=== PATIENT | male | born 1945 | race Caucasian/White ===

== ENCOUNTER 2016-10-08 18:57 | Inpatient (IN) | payer MEDICARE, OTHER ==
[~2016-10-08] VITALS: Ht 172.7 cm; Wt 57.0 kg
[~2016-10-08 18:57] MED LIST: ASPIRIN325 MG PO; B-121000 MC1 PO; BACLOFEN10 MG PO; CARTIA XT180 MG/24 PO; CEFPODOXIME PR200 MG PO; GABAPENTIN300 MG PO; LAXATIVE5 MG PO; MELATONIN3 M1 PO; MULTI VIT PO; SERTRALINE HCL50 MG PO; SYMBICORT 80-4.5MCG IN; TIZANIDINE HCL4 M1 PO; VICODIN ES1 TA1 PO
--- NOTE | 2016-10-08 18:57 | NUR ---
PT. IMMEDIATELY TO TREATMENT ROOM #9 ON ARRIVAL TO ED.
--- NOTE | 2016-10-08 19:21 | NUR ---
SPOUSE AT BEDSIDE AT THIS TIME.
--- NOTE | 2016-10-08 20:24 | NUR ---
PT SLEEPING SOUNDLY AT THIS TIME. APPEARS TO BE MOUTH BREATHER, HAS DECIDED TO GO HOME. FLUIDS AND ANTIBIOTIC INFUSING PER PROTOCOL. VITAL SIGNS STABLE.
[2016-10-08 20:34] LABS: HEMATOCRIT 32.4 % (39.0-50.0); HEMOGLOBIN 11.4 g/dl (14.0-18.0); IMMATURE GRANULOCYTES 0.5 % (0.0-1.0); MEAN CELL VOLUME 98.5 fL CALC (80.0-100.0); MEAN CORPUSCULAR HGB 34.7 pG CALC (26.0-32.0); MEAN CORPUSCULAR HGB CONC 35.2 g/L CALC (32.0-36.0); NEUT# 13.01 thou/uL (1.82-7.42); RED BLOOD COUNT 3.29 mill/uL (4.70-6.10); RED CELL DISTRI WIDTH 14.8 % (11.5-15.5)
[2016-10-08] MEDS ORDERED: MEGACE40 MG PO (20:39)
[2016-10-08] MEDS ORDERED: MIRTAZAPINE15 MG PO (20:39)
[2016-10-08] MEDS ORDERED: FLUOXETINE20 MG PO (20:39)
[2016-10-08] MEDS ORDERED: BUPROPION150 M3 PO (20:40)
[2016-10-08] MEDS ORDERED: HYDROXYCHLOR200 M1 PO (20:40)
[2016-10-08] MEDS ORDERED: PERCOCET 10/31 COMBO PO (20:41)
[2016-10-08] MEDS ORDERED: VITAMIN B-3 PO (20:42)
[2016-10-08] MEDS ORDERED: CALCIUM600 M1 PO (20:42)
[2016-10-08] MEDS ORDERED: FISH OIL1200 M1 PO (20:42)
[2016-10-08] MEDS ORDERED: PROSTATE HEALTH PO (20:43)
[2016-10-08] MEDS ORDERED: ALEVE220 MG PO (20:43)
[2016-10-08 20:44] LABS: ACT PARTIAL THROMBO TIME 26.4 SECONDS (20.0-32.5); INTERNATIONAL NORMALIZED RATIO 0.9 RATIO (0.7-1.3); PROTHROMBIN TIME 10.1 SECONDS (9.0-12.5)
[2016-10-08 20:45] LABS: ALBUMIN 3.8 g/dL (3.2-5.0); ALKALINE PHOSPHATASE 63 u/l (38-126); ANION GAP 14 (6-22 (CALC)); BILIRUBIN, TOTAL 0.5 mg/dL (0.0-1.4); BUN 13 mg/dL (8-23); BUN/CREATININE RATIO 21 (12-20 (CALC)); CALCIUM 9.4 mg/dL (8.4-10.2); CARBON DIOXIDE 26 mmol/l (22-30); CHLORIDE 98 mmol/l (95-108); CREATININE 0.6 mg/dL (0.7-1.3); GFR > 60 ML/MIN (>=60 (CALC)); GFR FOR AFR.AMER. > 60 ML/MIN (>=60 (CALC)); GLUCOSE 88 mg/dL (82-115); POTASSIUM 4.1 mmol/l (3.5-5.1); SGOT/AST 39 u/l (19-48); SGPT/ALT 29 u/l (11-66); SODIUM 134 mmol/l (137-146)
[2016-10-08 20:55] LABS: MYOGLOBIN 110 ng/mL (0 - 121)
--- NOTE | 2016-10-08 21:12 | NUR ---
PT REMAINS SLEEPING SOUNDLY, VITAL SIGNS STABLE, IV FLUIDS INFUSING.
--- NOTE | 2016-10-08 21:33 | NUR ---
FLUIDS STILL INFUSING, BLOOD PRESSURE HAS INCREASED TO 98/60, IV SITE REMAINS HEALTHY.
[2016-10-08 22:30] LABS: URINE BILIRUBIN - DIPSTICK NEGATIVE (NEGATIVE); URINE BLOOD DIPSTICK NEGATIVE (NEGATIVE); URINE CLARITY CLEAR; URINE COLOR YELLOW; URINE GLUCOSE - DIPSTICK NEGATIVE (NEGATIVE); URINE KETONE TRACE mg/dL (NEGATIVE); URINE LEUK ESTERASE NEGATIVE (NEGATIVE); URINE NITRITE - DIPSTICK NEGATIVE (Negative); URINE PH 5.5 (4.5-8.0); URINE PROTEIN - DIPSTICK TRACE mg/dL (NEG-TRACE); URINE SPECIFIC GRAVITY >=1.030; URINE UROBILINOGEN - DIPSTICK 0.2 E.U./dL (0.2)
--- NOTE | 2016-10-08 23:23 | NUR ---
MEDICATED FOR COMPLAINT OF BACK PAIN. PTIENT IS CONMVERSING MORE READILY, EG ASKING WHAT IV MED WAS BEING GIVEN.
[2016-10-09] VITALS (7 sets, daily range): BP systolic 129–172; BP diastolic 72–95
--- NOTE | 2016-10-09 01:05 | NUR ---
1ST LITER OF NORMAL SLAINE INFUSED, 2ND STARTED AT 500 CC/HR FOR A TOTAL OF 800 CC. PATIENT DIEFINITY MORE ALERT AND COGNIZANT - CALLING THE IV PUMP "A PAIN IN THE ASS!"
--- NOTE | 2016-10-09 01:51 | NUR ---
SBAR PRINTED TO FLOOR
--- NOTE | 2016-10-09 02:38 | NUR ---
Admission Note Report Given to: QUIN PRINTED TO FLOOR, SEN Transported by: Wheelchair X Stretcher Transported with: X Nurse Transporter X Patent IV O2 X Immigration Case Worker
--- NOTE | 2016-10-09 02:46 | NUR ---
REPORT WAS GIVEN TO SEN ON MED SURG AND PATIENT TAKEN UPSTAIRS ON THE RNEY BY SHIRAZ LEE.
--- NOTE | 2016-10-09 03:00 | NUR ---
PATIENT ADMITTED FROM ER VIA STRETCHER WITH ER STAFF IN ATTENDANCE. PATIENT IS MAX ASSISTED TO STAND AND TRANSFER TO THE BED. PATIENT IS AWAKE ALERT AND ORIENTEDX3. PATIENT WITH O2 VIA NASAL CANNULA VIA NASAL CANNULA AT 2LPM. PATIENT WITH HISTORY OF COPD AND HAS O2 AT HOME. PATIENT ADMITTED FOR WEAKNESS, FALL AND SYNCOPE. PATIENT WITH HISTORY OF CHRONIC BACK PAIN. PATIENT WITH IV SITE TO LEFT AC WITH NS PATENT AND INFUSING AT 125CC/HR. SITE APPEARS HEALTHY AT THIS TIME. PATIENT IS VOIDING TEA COLORED URINE IN THE URINAL. PATIENT IS VERY UNSTEADY ON HIS FEET. SAFETY PRECAUTIONS REVIEWED WITH PATIENT. PATIENT ORIENTED TO ROOM AND SURROUNDINGS.. INSTRUCTED ON USE OF NURSE CALL LIGHT SYSTEM AND TV REMOTE. CALL LIGHT IN REACH. WILL CONT TO MONITOR.
--- NOTE | 2016-10-09 04:16 | NUR ---
RECIEVED CALL FROM BEKA LEE IN THE ER-STATES THAT PATIENT JUST HAD 6 BEAT RUN OF V-TACH. PATIENT RESTING IN BED WITH O2 VIA NASAL CANNULA IN PLACE. PATIENT IS ALERT AND ORIENTED. SKIN IS WARM AND DRY WITH NO COMPPLAINTS OF CHEST PAIN OR SOB. PATIENT DENIES ANY PALPATATIONS. ASYMPTOMATIC AT THIS TIME. CALL LIGHT IN REACH. WILL CONT TO MONITOR.
--- NOTE | 2016-10-09 05:46 | NUR ---
PATIENT C/O BACK PAIN 7/10 ON PAIN SCALE-MEDICATED WITH PERCOCET 5/325MG PO ORDERED FOR PAIN. CALL LIGHT IN REACH. WILL CONT TO MONITOR.
--- NOTE | 2016-10-09 07:33 | NUR ---
REPORT RECEIVED FROM ROSA CHATTERJEE. PT REPORTS MILD BACK/NECK PAIN 3 ON PAIN SCALE. REPORTING OF CONCERNS ENCOURAGED. FALL PRECAUTIONS REINFORCED. PLAN OF CARE DISCUSSED. CALL LIGHT REVIEWED AND IN REACH. PT STATES UNDERSTANDING.
[2016-10-09 09:38] LABS: HEMATOCRIT 27.7 % (39.0-50.0); HEMOGLOBIN 10.1 g/dl (14.0-18.0); IMMATURE GRANULOCYTES 0.4 % (0.0-1.0); MEAN CELL VOLUME 96.9 fL CALC (80.0-100.0); MEAN CORPUSCULAR HGB 35.3 pG CALC (26.0-32.0); MEAN CORPUSCULAR HGB CONC 36.5 g/L CALC (32.0-36.0); NEUT# 8.22 thou/uL (1.82-7.42); RED BLOOD COUNT 2.86 mill/uL (4.70-6.10); RED CELL DISTRI WIDTH 14.4 % (11.5-15.5)
--- NOTE | 2016-10-09 11:39 | NUR ---
PT REPORTS MODERATE BACK PAIN. PERCOCET PO ADMINISTERED. WILL MONITOR FOR EFFECTIVENESS.
--- NOTE | 2016-10-09 16:13 | NUR ---
PT DENIES COMPLAINTS AT THIS TIME. CALL LIGHT WITHIN REACH.
--- NOTE | 2016-10-09 19:57 | NUR ---
BEDSIDE REPORT RECEIVED FROM ROSA BLOOM. PT C/O CHRONIC PAIN WHICH HE STATES IS NORMAL. OXYGEN AT 2L NC NOTED IN MOUTH. NO RESPIRATORY DISTRESS NOTED. PLAN OF CARE DISCUSSED. ENCOURAGED TO VERBALIZE CONCERNS. PT STATES UNDERSTANDING. SAFETY PRECAUTIONS IN PLACE. CALL LIGHT SYSTEM REVIEWED AND IN REACH.
--- NOTE | 2016-10-10 | NUR ---
PT RESTING IN RIGHT SIDE-LYING POSITION. DECLINES POSITION CHANGES STATING THAT IS HOW HE HAS TO SLEEP. UP TO BSC TO VOID AND MOVE BOWELS. EMS SITE D/C'D AND NEW SITE TO RIGHT WRIST INFUSING FLUIDS PATENTLY. SITE LOOKS HEALTHY WITHOUT SIGNS OF INFILTRATION OR PHLEBITIS. RT CHANGED PT FROM OXYGEN VIA NC TO FACE MASK. SPO2 REMAINS ABOVE 90%. SAFETY MEASURES ARE IN PLACE. CALL LIGHT WTIHIN REACH.
[2016-10-10 04:00] VITALS: BP 129/66
--- NOTE | 2016-10-10 04:00 | NUR ---
PT RESTING IN RIGHT SIDE LYING POSITION. PUTS CALL LIGHT ON FREQUENTLY FOR CONCERNS RELATED TO OXYGEN AND COMFORT. REPOSITIONED PERIODICALLY. SAFETY MEASURES IN PLACE. CALL LIGHT WITHIN REACH.
[2016-10-10 05:19] LABS: ANION GAP 11 (6-22 (CALC)); BUN 4 mg/dL (8-23); BUN/CREATININE RATIO 11 (12-20 (CALC)); CALCIUM 8.6 mg/dL (8.4-10.2); CARBON DIOXIDE 23 mmol/l (22-30); CHLORIDE 99 mmol/l (95-108); CREATININE 0.4 mg/dL (0.7-1.3); GFR > 60 ML/MIN (>=60 (CALC)); GFR FOR AFR.AMER. > 60 ML/MIN (>=60 (CALC)); GLUCOSE 86 mg/dL (82-115); POTASSIUM 3.7 mmol/l (3.5-5.1); SODIUM 130 mmol/l (137-146)
[2016-10-10 05:28] LABS: HEMATOCRIT 28.6 % (39.0-50.0); HEMOGLOBIN 10.2 g/dl (14.0-18.0); IMMATURE GRANULOCYTES 0.3 % (0.0-1.0); MEAN CORPUSCULAR HGB 34.2 pG CALC (26.0-32.0); MEAN CORPUSCULAR HGB CONC 35.7 g/L CALC (32.0-36.0); NEUT# 7.93 thou/uL (1.82-7.42); RED BLOOD COUNT 2.98 mill/uL (4.70-6.10)
[2016-10-10 07:53] VITALS: BP 144/81
--- NOTE | 2016-10-10 07:55 | NUR ---
PT SITTING ON SIDE OF BED WITH O2 MASK IN PLACE. ASSESSMENT COMPLETED. SKIN WARM AND DRY COLOR PINK. PT COMPLAINS OF BACK PAIN, INSTRUCTED PT THAT IT ISN'T TIME FOR PAIN MED. HOWEVER, WHEN IT IS TIME HE WILL BE MEDICATED FOR THE PAIN. WILL CONTINUE TO MONITOR. CALL LIGHT WITHIN REACH.
[2016-10-10] MEDS ORDERED: ZITHROMAX500 MG PO (10:04)
[2016-10-10] MEDS ORDERED: MEDDOSEPAK PO (10:04)
--- NOTE | 2016-10-10 10:50 | NUR ---
Discharge instructions given. Patient verbalizes understanding of same. Discharged in stable condition via Wheelchair to Home with friend. All belongings sent with pt. DISCHARGE INSTRUCTIONS GIVEN TO WITH VERBAL UNDERSTANDING OF TEACHING. SALINE LOCK REMOVED, SITE WITHOUT REDNESS OR EDEMA NOTED. DRESSING APPLIED. PT DISCHARGE TO HOME VIA WHEELCHAIR. PT ALERT AND ORIENTED, SKIN WARM AND DRY, COLOR PINK. NO RESP. DISTRESS NOTED.
== END 2016-10-10 11:38 | disposition home or self-care (01) | DRG 191 ==
LOC: ENPENDDIS → ED 18:57 → ED-I 10-09 00:25 → ED 10-09 02:10 → MS2 10-09 02:11
PROVIDERS: Emergency Medicine; Internal Medicine; ADMIT Internal Medicine; ATTEND Internal Medicine
DX: J44.1 Chronic obstructive pulmonary disease with (acute) exacerbation (principal); R65.10 Systemic inflammatory response syndrome (SIRS) of non-infectious origin without acute organ dysfunction; Z99.81 Dependence on supplemental oxygen; F10.20 Alcohol dependence, uncomplicated; M19.90 Unspecified osteoarthritis, unspecified site; F17.210 Nicotine dependence, cigarettes, uncomplicated; G62.9 Polyneuropathy, unspecified; Z91.81 History of falling; Z79.899 Other long term (current) drug therapy
CPT/HCPCS: J1650

== ENCOUNTER 2016-10-15 17:36 | Inpatient (IN) | payer MEDICARE, OTHER ==
[~2016-10-15] VITALS: Ht 172.7 cm; Wt 54.0 kg
[~2016-10-15 17:36] MED LIST changes: +ALEVE220 MG PO; +BUPROPION150 M3 PO; +CALCIUM600 M1 PO; +FISH OIL1200 M1 PO; +FLUOXETINE20 MG PO; +HYDROXYCHLOR200 M1 PO; +MEDDOSEPAK PO; +MEGACE40 MG PO; +MIRTAZAPINE15 MG PO; +PERCOCET 10/31 COMBO PO; +PROSTATE HEALTH PO; +VITAMIN B-3 PO; +ZITHROMAX500 MG PO
--- NOTE | 2016-10-15 17:36 | NUR ---
PT ARRIVES, STROKE ALERT CALLED BY DR CARTWRIGHT. PT IMMEDIATELY TO CAT SCAN.
--- NOTE | 2016-10-15 18:10 | NUR ---
SPOKE TO DR MCKINNON NEUROLOGIST AT [facility]. CANCELS STROKE ALERT AND BELIEVES PATIENT MAY BE MORE OF A AMS OR DRUG OVERDOSE AND TO EVALUATE HERE WITH FURTHER TESTING. PATIENT NOT RECOMMENDED TO BE TRANSPORTED UNDER STROKE GUIDELINES
--- NOTE | 2016-10-15 18:15 | NUR ---
DR PEREZ TO BEDSIDE FOR ASSESSMENT. PT MORE AROUSEABLE NOW, RESPONDS TO VERBAL COMMANDS, CAN LIFT BOTH ARMS AND LEGS. ORIENTED TO PLACE AND SELF
[2016-10-15 18:48] LABS: HEMATOCRIT 30.2 % (39.0-50.0); HEMOGLOBIN 10.6 g/dl (14.0-18.0); IMMATURE GRANULOCYTES 0.5 % (0.0-1.0); MEAN CELL VOLUME 98.1 fL CALC (80.0-100.0); MEAN CORPUSCULAR HGB 34.4 pG CALC (26.0-32.0); MEAN CORPUSCULAR HGB CONC 35.1 g/L CALC (32.0-36.0); NEUT# 14.67 thou/uL (1.82-7.42); RED BLOOD COUNT 3.08 mill/uL (4.70-6.10); RED CELL DISTRI WIDTH 14.6 % (11.5-15.5)
--- NOTE | 2016-10-15 19:02 | NUR ---
PT RESPONDS TO SPOUSE APPROPRIATELY. FOLLOWS COMMANDS.
[2016-10-15 19:03] LABS: ALBUMIN 3.9 g/dL (3.2-5.0); ALKALINE PHOSPHATASE 72 u/l (38-126); ANION GAP 16 (6-22 (CALC)); BILIRUBIN, TOTAL 0.6 mg/dL (0.0-1.4); BUN 16 mg/dL (8-23); BUN/CREATININE RATIO 20 (12-20 (CALC)); CALCIUM 9.7 mg/dL (8.4-10.2); CARBON DIOXIDE 23 mmol/l (22-30); CHLORIDE 101 mmol/l (95-108); CREATININE 0.8 mg/dL (0.7-1.3); GFR > 60 ML/MIN (>=60 (CALC)); GFR FOR AFR.AMER. > 60 ML/MIN (>=60 (CALC)); GLUCOSE 81 mg/dL (82-115); SGOT/AST 25 u/l (19-48); SGPT/ALT 32 u/l (11-66); SODIUM 136 mmol/l (137-146)
[2016-10-15 19:13] LABS: MYOGLOBIN 164 ng/mL (0 - 121)
--- NOTE | 2016-10-15 19:19 | NUR ---
STRAIGHT CATH FOR UA SPECIMAN.
--- NOTE | 2016-10-15 19:27 | NUR ---
UNABLE TO COMPLETE MED REC DUE TO PT CONDITION, NO FAMILY AT BEDSIDE.
[2016-10-15 19:39] LABS: URINE BILIRUBIN - DIPSTICK NEGATIVE (NEGATIVE); URINE BLOOD DIPSTICK NEGATIVE (NEGATIVE); URINE CLARITY CLEAR; URINE COLOR YELLOW; URINE GLUCOSE - DIPSTICK NEGATIVE (NEGATIVE); URINE KETONE NEGATIVE (NEGATIVE); URINE LEUK ESTERASE NEGATIVE (NEGATIVE); URINE NITRITE - DIPSTICK NEGATIVE (Negative); URINE PROTEIN - DIPSTICK NEGATIVE (NEG-TRACE); URINE SPECIFIC GRAVITY 1.025; URINE UROBILINOGEN - DIPSTICK 0.2 E.U./dL (0.2)
[2016-10-15 19:48] LABS: COCAINE NEGATIVE (NEGATIVE); METHADONE NEGATIVE (NEGATIVE); TETRAHYDROCANNABIONOL POSITIVE (NEGATIVE)
[2016-10-15 19:49] LABS: BARBITURATES NEGATIVE (NEGATIVE); OXCYCODONE POSITIVE (NEGATIVE); TRICYLIC ANTIDEPRESSANTS NEGATIVE (NEGATIVE)
--- NOTE | 2016-10-15 20:11 | NUR ---
DR PEREZ AT BEDSIDE, PT RESPONDED TO VERBAL STIMULI.
--- NOTE | 2016-10-15 21:25 | NUR ---
REPORT TO LIV GODDARD/SURG.
--- NOTE | 2016-10-15 21:35 | NUR ---
PT TO 270 VIA STRETCHER WITH 02 AND MONITOR
[2016-10-15 21:40] VITALS: BP 127/73
--- NOTE | 2016-10-15 21:40 | NUR ---
PATIENT ARRIVED TO THE [facility] VIA STRETCHER IN STABLE CONDITION. PATIENT A/O. PATIENT SETTLED TO BED. NO VOICED COMPLAINTS.
[2016-10-15 23:59] VITALS: BP 117/73
[2016-10-16 03:47] VITALS: BP 125/74
--- NOTE | 2016-10-16 04:00 | NUR ---
PATIENT RESTED WEL DURING THE NIGHT. NO ACUTE DISTRESS NOTED
[2016-10-16 05:33] LABS: HEMATOCRIT 28.7 % (39.0-50.0); HEMOGLOBIN 10.1 g/dl (14.0-18.0); MEAN CELL VOLUME 98.3 fL CALC (80.0-100.0); MEAN CORPUSCULAR HGB 34.6 pG CALC (26.0-32.0); MEAN CORPUSCULAR HGB CONC 35.2 g/L CALC (32.0-36.0); RED BLOOD COUNT 2.92 mill/uL (4.70-6.10); RED CELL DISTRI WIDTH 14.7 % (11.5-15.5)
[2016-10-16 05:54] LABS: ANION GAP 12 (6-22 (CALC)); BUN 17 mg/dL (8-23); BUN/CREATININE RATIO 27 (12-20 (CALC)); CALCIUM 9.4 mg/dL (8.4-10.2); CARBON DIOXIDE 27 mmol/l (22-30); CHLORIDE 103 mmol/l (95-108); CREATININE 0.6 mg/dL (0.7-1.3); GFR > 60 ML/MIN (>=60 (CALC)); GFR FOR AFR.AMER. > 60 ML/MIN (>=60 (CALC)); GLUCOSE 82 mg/dL (82-115); POTASSIUM 4.1 mmol/l (3.5-5.1); SODIUM 138 mmol/l (137-146)
--- NOTE | 2016-10-16 07:00 | NUR ---
SHIFT CHANGE REPORT FROM LIV, O2 @ 2L IN PLACE VIA NC, IVF INFUSING, NO C/O DISCOMFORT, CALL LIMA IN REACH.
[2016-10-16 08:37] VITALS: BP 112/66
--- NOTE | 2016-10-16 12:39 | NUR ---
PT ASSISTED BACK IN TO BED, AMBULATED WITH SL UNSTEADY GAIT, WITH WALKER. STAND BY ASSIST. PT REPORTS 8/10 LOWER BACK PAIN. MEDICATED WITH PAIN MED PER PHYSICIANS ORDERS. PT ALSO REPORTS BEING A "MOUTH BREATHER" RT NOTIFIED OF PT REQUEST FOR MASK VS NC. PT DENIES ANY FURTHER NEEDS, CALL LIGHT WITHIN REACH.
[2016-10-16 13:00] VITALS: BP 106/71
--- NOTE | 2016-10-16 17:00 | NUR ---
PT REPORTED HASNOT VOIDED TODAY, TAG MARKER REPORTED PT VOIDED X 1 WHICH WAS DOCUMENTED, BLADDER SCANNED = 536 ML. PT ENCOURAGED TO STAND/SIT MOVE AND TRY TO VOID BUT STAES HE IS UNABLE TO TOLERATE STANDING/SITTING IN RECLINER AND WENT BACK TO BED. SPOUSE AT BEDSIDE AT THIS ITME, CALL LIMA IN REACH.
[2016-10-16 19:16] VITALS: BP 111/65
--- NOTE | 2016-10-16 20:00 | NUR ---
STRAIGHT CATHED WITH RESULT OF 500ML OF DARK YELLOW URINE, MET RESISTANCE WHEN INSERTING CATHETER, TOLERATED WELL. URINAL AT BED SIDE. RESPIRATIONS EVEN AND UNLABORED ON O2. A/O X3, D5 LR INFUSING TO LFA AT 75CC/HR. ENCOURAGED TO USE CALL LIGHT FOR ASSISTANCE.
[2016-10-16 23:25] VITALS: BP 120/77
--- NOTE | 2016-10-17 | NUR ---
OOB TO BSC WITH TWO PERSON ASSISTANCE, UNSTEADY GAIT, NO URINE OR BM AT THIS TIME, PASSING FLATUS. BACK TO BED, CALL LIGHT IN REACH.
[2016-10-17 03:27] VITALS: BP 125/76
--- NOTE | 2016-10-17 04:30 | NUR ---
AM BLOOD WORK DRAWN BY [employer], TOLERATED WELL.
[2016-10-17 05:20] LABS: HEMATOCRIT 26.5 % (39.0-50.0); HEMOGLOBIN 9.4 g/dl (14.0-18.0); IMMATURE GRANULOCYTES 0.4 % (0.0-1.0); MEAN CELL VOLUME 95.3 fL CALC (80.0-100.0); MEAN CORPUSCULAR HGB 33.8 pG CALC (26.0-32.0); MEAN CORPUSCULAR HGB CONC 35.5 g/L CALC (32.0-36.0); NEUT# 10.56 thou/uL (1.82-7.42); RED BLOOD COUNT 2.78 mill/uL (4.70-6.10); RED CELL DISTRI WIDTH 14.1 % (11.5-15.5)
[2016-10-17 05:44] LABS: ANION GAP 14 (6-22 (CALC)); BUN 14 mg/dL (8-23); BUN/CREATININE RATIO 31 (12-20 (CALC)); CALCIUM 9.3 mg/dL (8.4-10.2); CARBON DIOXIDE 22 mmol/l (22-30); CHLORIDE 99 mmol/l (95-108); CREATININE 0.5 mg/dL (0.7-1.3); GFR > 60 ML/MIN (>=60 (CALC)); GFR FOR AFR.AMER. > 60 ML/MIN (>=60 (CALC)); GLUCOSE 116 mg/dL (82-115); POTASSIUM 4.7 mmol/l (3.5-5.1); SODIUM 131 mmol/l (137-146)
--- NOTE | 2016-10-17 05:50 | NUR ---
PT ADMITS TO HAVING THE URGE TO VOID BUT NOT ABLE TO START STREAM. BLADDER SCANER READING 523. STRAIGHT CATHED WITH 550ML CLEAR YELLOW URINE DRAINED, TOLERATED WELL.
[2016-10-17 07:50] VITALS: BP 110/68
--- NOTE | 2016-10-17 07:50 | NUR ---
ASSESSMENT IS COMPLETED: BREATH SOUNDS ARE CLEAR, DIMINISHED AND WHEEZING, O2 @28% ON VENTI MASK. CONTINUE TO OSBERVE AND MONITOR. IV SITE IS FREE FROM REDNESS OR EDEMA.
--- NOTE | 2016-10-17 12:30 | NUR ---
PT IS RELAXING IN BED DID HAVE A LARGE INCONTINENCE OF URINE. NO DISTRESS NOTED. IV SITE IS FREE FROM REDNESS OR EDEMA.
[2016-10-17 16:00] VITALS: BP 111/65
--- NOTE | 2016-10-17 16:00 | NUR ---
PT IS RELAXING IN BED WITH NO DISTRESS NOTED. IV SITE IS FREE FROM REDNESS OR EDEMA. PT REFUSES TO KEEP THE O2 ON EVEN WITH PROMPTING. CONTINUE TO OSBERVE AND MONITOR.
--- NOTE | 2016-10-17 17:04 | NUR ---
PT HAS BEEN KEEPING HIS NC OFF THIS PM. WHEN ASKED ABOUT NC STATED" I AM BREATHING IN WET AIR". SATURATION LEVEL IS 91-93% ON RA
[2016-10-17 19:25] VITALS: BP 115/69
--- NOTE | 2016-10-17 19:48 | NUR ---
REPORT RECEIVED FROM DARIUSZ; PT.DENIES ANY NEEDS AT THIS TIME; CALL LIGHT W/IN REACH AND PT.ENCOURAGED TO CALL ASSISTANCE IS NEEDED
--- NOTE | 2016-10-17 22:30 | NUR ---
PT.MEDICATED ORDES PROVIDE, C/O PAIN 03/05; URINAL EMPTIED OF 300CC YELLOW CLOUDY URINE; PT.MEDICATED FOR PAIN, PT.UPRIGHT WATCHING TV W/NO SIGNS OF DISTRESS; WILL CONTINUE TO MONITOR; CALL LIGHT W/IN REACH
[2016-10-17 23:20] VITALS: BP 121/76
--- NOTE | 2016-10-18 04:00 | NUR ---
PT.V/S ASSESSED, PT.URINAL EMPTIED OF 400CC YELLOW CLOUDY URINE; NO S/S OF DISTRESS AT THIS TIME, CALL LIGHT AND BST W/IN REACH
[2016-10-18 04:10] VITALS: BP 133/74
[2016-10-18 06:20] LABS: HEMATOCRIT 27.1 % (39.0-50.0); HEMOGLOBIN 9.7 g/dl (14.0-18.0); IMMATURE GRANULOCYTES 0.4 % (0.0-1.0); MEAN CELL VOLUME 96.4 fL CALC (80.0-100.0); MEAN CORPUSCULAR HGB 34.5 pG CALC (26.0-32.0); MEAN CORPUSCULAR HGB CONC 35.8 g/L CALC (32.0-36.0); NEUT# 10.57 thou/uL (1.82-7.42); RED BLOOD COUNT 2.81 mill/uL (4.70-6.10); RED CELL DISTRI WIDTH 14.6 % (11.5-15.5)
[2016-10-18 06:34] LABS: ANION GAP 13 (6-22 (CALC)); BUN 11 mg/dL (8-23); BUN/CREATININE RATIO 23 (12-20 (CALC)); CALCIUM 9.2 mg/dL (8.4-10.2); CARBON DIOXIDE 23 mmol/l (22-30); CHLORIDE 96 mmol/l (95-108); CREATININE 0.5 mg/dL (0.7-1.3); GFR > 60 ML/MIN (>=60 (CALC)); GFR FOR AFR.AMER. > 60 ML/MIN (>=60 (CALC)); GLUCOSE 111 mg/dL (82-115); POTASSIUM 4.6 mmol/l (3.5-5.1); SODIUM 128 mmol/l (137-146)
--- NOTE | 2016-10-18 07:00 | NUR ---
SHIFT CHANGE REPORT, PT AWAKE AND ALERT, C/O GENERALISED BACK PAIN, IVF INFUSING, TELE MONITOR IN PLACE, CURRENT NEEDS ADDRESSED, CALL LIMA IN REACH.
[2016-10-18 08:37] VITALS: BP 121/68
[2016-10-18 11:15] VITALS: BP 116/64
--- NOTE | 2016-10-18 12:04 | NUR ---
SITTING UP IN BED HAVING MEAL, DOES NOT WANT TO GET OOB STATING HIS BACK HURTS WHEN SITTING UP. MEDICATED, WILL CONTINUE TO MONITOR, CALL LIMA IN REACH.
[2016-10-18 15:01] VITALS: BP 109/65
--- NOTE | 2016-10-18 16:39 | NUR ---
RELAXING IN BED AT THIS TIME, REPORTS PAIN MED VERY EFFECTIVE IN CONTROLLING PAIN, INQUIRE ABOUT TIME HE CAN HAVE MED AGAIN AND INFORMED. CALL LIMA IN REACH, SPOUSE JUST ARRIVED TO VISIT.
--- NOTE | 2016-10-18 19:05 | NUR ---
REPORT RECEIVED FROM DARIUSZ DESAI; PT.IN BED AWOKE TO MY ENTERING ROOM; PT.DENIES ANY NEEDS AT THIS TIME, BUT STATED THAT HE KNOWS HE GETS A PAIN PILL AT 9. I TOLD HIM I WOULD CHECK THE MED SCHEDULE AND BE BACK AROUND TO ASSESS HIM AND FOLLOW-UP WITH MEDICATIONS; PT.WAS WEARING HIS O2 VIA MASK AND REPORTED THAT IT WAS WORKING MUCH BETTER FOR HIM THAN THE NC; WILL CONTINUE TO MONITOR, PT.ENCOURAGED TO CALL FOR ASSISTANCE NEEDS ARISE
[2016-10-18 20:10] VITALS: BP 109/64
--- NOTE | 2016-10-18 21:00 | NUR ---
PT.UPRIGHT IN BED W/O2 MASK ON, NO APPARENT S/O DISTRESS OR DISCOMFORT AT THIS TIME; PT.MEDICATED ORDERS PROVIDE; PT.C/O PAIN 8/10 OF PAIN ON TOP OF LEFT FOOT, NO OBVIOUS SIGNS OF TRAUMA,EDEMA, OR BRUISING ON FOOT;
[2016-10-19] VITALS (7 sets, daily range): BP systolic 104–122; BP diastolic 61–73
--- NOTE | 2016-10-19 03:00 | NUR ---
PT.CALLED TO REPORT HE USED HIS URINAL, 300CC OF CLOUDY YELLOW URINE WERE EMPTIED; PT.STATED THAT HE HAS SLEPT BETTER THIS EVENING THAN HE HAS IN WEEKS, HE IS FINALLY OUT OF PAIN AND CAN SLEEP, HE REPORTED THAT HE THINKS THE SCHEDULED MS CONTIN MADE THE DIFFERENCE; PT.DENIES ANY FURTHER NEEDS AT THIS TIME, CALL LIGHT W/IN REACH
[2016-10-19 05:52] LABS: HEMATOCRIT 29.3 % (39.0-50.0); HEMOGLOBIN 10.5 g/dl (14.0-18.0); IMMATURE GRANULOCYTES 0.4 % (0.0-1.0); MEAN CELL VOLUME 96.4 fL CALC (80.0-100.0); MEAN CORPUSCULAR HGB 34.5 pG CALC (26.0-32.0); MEAN CORPUSCULAR HGB CONC 35.8 g/L CALC (32.0-36.0); NEUT# 8.92 thou/uL (1.82-7.42); RED BLOOD COUNT 3.04 mill/uL (4.70-6.10); RED CELL DISTRI WIDTH 14.5 % (11.5-15.5)
[2016-10-19 06:10] LABS: ANION GAP 14 (6-22 (CALC)); BUN 15 mg/dL (8-23); BUN/CREATININE RATIO 29 (12-20 (CALC)); CALCIUM 9.3 mg/dL (8.4-10.2); CARBON DIOXIDE 23 mmol/l (22-30); CHLORIDE 97 mmol/l (95-108); CREATININE 0.5 mg/dL (0.7-1.3); GFR > 60 ML/MIN (>=60 (CALC)); GFR FOR AFR.AMER. > 60 ML/MIN (>=60 (CALC)); GLUCOSE 108 mg/dL (82-115); POTASSIUM 4.9 mmol/l (3.5-5.1); SODIUM 129 mmol/l (137-146)
--- NOTE | 2016-10-19 07:00 | NUR ---
SHIRT CHANGE REPORT FROM IRENE FULLER AWAKE AND ALERT IN HIGH FOWLERS POSITION IN BED, O2 @ 2L VIA FCE MASK IN PLACE, STATES PAIN MUCH BETTER TODAY, TELE MONITOR IN PLACE, CALL LMIA IN REACH.
--- NOTE | 2016-10-19 09:31 | NUR ---
PT REPORTS HIS PAIN IS MUCH MORE CONTROLLED WITH NEW MED (MS CONTIN), WHEN ENCOURAGED TO GET OOB TO CHAIR REFUSED, REFUSED TO REPOSITION ON SIDES. INFORMED/EDUCATED ON PRESSURE ULCERS AND CONSTIPATION, OFFERED PRUNE JUICE, REFUSED ALL, JUST WANTS TO LAY ON BACK IN SEMI-HIGH FOWLERS POSITION, REMINDED OF RISK FOR PRESSURE ULCERS AND CONSTIPATION, DOES NOT CARE TO CHANGE RISKY DESIRES, WILL CONTINUE TO MONITOR.
--- NOTE | 2016-10-19 12:00 | NUR ---
PT SAT UP IN RECLINER LESS THAN 50 MINS AND THEN REQUESTED TO GET BACK IN BED STATING HIS BACK WAS HURTING HIM BUT PAIN WAS RELIEVED SOON HE WENT BACK TO BED. WILL CONTINUE TO MONITOR, CALL LIMA IN REACH.
--- NOTE | 2016-10-19 14:55 | NUR ---
AT 1420 ED REPORTED EPISODE V-TAC, VS MEASURED = 97.1, 115, 21, 104/68, 96% DR SHARP ON UNIT AT THIS TIME AND GIVEN REPORT. WROTE NEW ORDERS WHICH WERE EXECUTED.M PT A-SYMPTOMATIC AT THIS TIME AND FAMILY MEMBERS JUST LEAVING ROOM. WILL CONTINUE TO MONITOR.
--- NOTE | 2016-10-19 15:44 | NUR ---
RESTING IN BED AT THIS TIME, NO C/O DISCOMFORT, IVF INFUSING, CALL LIMA IN REACH.
--- NOTE | 2016-10-19 19:00 | NUR ---
REPORT RECEIVED FROM ROSA DESAI,[facility]; PT.UPRIGHT IN BED W/LIGHTS OFF, DENIES ANY NEEDS AT THIS TIME; CALL LIGHT AND BST W/IN REACH, URINAL EMPTIED OF 200CC YELLOW URINE
--- NOTE | 2016-10-19 21:10 | NUR ---
PT.MEDICATED ORDERS PROVIDE, PT.DENIES ANY FURTHER NEEDS AT THIS TIME; URINAL EMPTIED OF 200CC
--- NOTE | 2016-10-20 02:34 | NUR ---
PT.REQUESTED URINAL BE EMPTIED; 200CC YELLOW URINE; DENIES ANY FURTHER NEEDS AT THIS TIME; CALL LIGHT W/IN REACH
[2016-10-20 04:20] VITALS: BP 119/75
[2016-10-20 05:16] LABS: HEMATOCRIT 30.4 % (39.0-50.0); HEMOGLOBIN 10.9 g/dl (14.0-18.0); IMMATURE GRANULOCYTES 0.5 % (0.0-1.0); MEAN CELL VOLUME 95.6 fL CALC (80.0-100.0); MEAN CORPUSCULAR HGB 34.3 pG CALC (26.0-32.0); MEAN CORPUSCULAR HGB CONC 35.9 g/L CALC (32.0-36.0); NEUT# 12.6 thou/uL (1.82-7.42); RED BLOOD COUNT 3.18 mill/uL (4.70-6.10); RED CELL DISTRI WIDTH 14.3 % (11.5-15.5)
[2016-10-20 05:18] LABS: ALBUMIN 3.4 g/dL (3.2-5.0); BUN 19 mg/dL (8-23); CALCIUM 9.5 mg/dL (8.4-10.2); CARBON DIOXIDE 24 mmol/l (22-30); CHLORIDE 96 mmol/l (95-108); CREATININE 0.5 mg/dL (0.7-1.3); GFR > 60 ML/MIN (>=60 (CALC)); GFR FOR AFR.AMER. > 60 ML/MIN (>=60 (CALC)); GLUCOSE 110 mg/dL (82-115); POTASSIUM 4.9 mmol/l (3.5-5.1); SODIUM 128 mmol/l (137-146)
--- NOTE | 2016-10-20 07:00 | NUR ---
SHIFT CHANGE REPORT FROM IRENE FULLER AWAKE ALERT AND ORIENTED SITTING UP IN BED, NO C/O DISCOMFORT AT THIS TIME, O2 @ 2L IN PLACE VIA FACE MASK, PT REMOVES AND REPLACES PERIODICALLY HE WANTS TO WITH O2 LEVELS SUSTAINING AT 97% ON R/A, TELE MONITOR IN PLACE, CALL LIMA IN REACH.
[2016-10-20 08:17] VITALS: BP 117/67
[2016-10-20 13:30] VITALS: BP 97/62
[2016-10-20] MEDS ORDERED: TAMSULOSIN HCL0.4 MG PO (13:45)
[2016-10-20] MEDS ORDERED: IPRATROPIU0.5 MG/3 M IN (13:45)
[2016-10-20] MEDS ORDERED: LOPRESSOR25 MG PO (13:45)
[2016-10-20] MEDS ORDERED: PERCOCET 10/31 COMBO PO (13:45)
[2016-10-20] MEDS ORDERED: MS CONTIN ER15 MG PO (13:45)
[2016-10-20] MEDS ORDERED: PREDNISONE10 MG PO (13:45)
[2016-10-20] MEDS ORDERED: LEVAQUIN750 MG PO (13:47)
--- NOTE | 2016-10-20 15:06 | NUR ---
REPORT CALLED TO NURSE FARRAR AT [facility], PT LEAVING AT THIS TIME WITH TRANSPORTER, SPOUSE AT BEDSIDE AND ACCOMPANYING.
--- NOTE | 2016-10-20 15:07 | NUR ---
Discharge instructions given. Patient verbalizes understanding of same. Discharged in stable condition via Wheelchair to [facility] with *Other. All belongings sent with pt.
== END 2016-10-20 15:00 | DRG 917 ==
LOC: ENPENDDIS → ED 17:36 → ED-I 17:42 → ED 20:15 → MS2 20:16
PROVIDERS: Emergency Medicine; Internal Medicine; ADMIT Internal Medicine; ATTEND Internal Medicine
DX: T42.8X1A Poisoning by antiparkinsonism drugs and other central muscle-tone depressants, accidental (unintentional), initial encounter (principal); G92 Toxic encephalopathy; I47.2 Ventricular tachycardia; J44.1 Chronic obstructive pulmonary disease with (acute) exacerbation; J96.10 Chronic respiratory failure, unspecified whether with hypoxia or hypercapnia; R64 Cachexia; Z68.1 Body mass index [BMI] 19.9 or less, adult; T42.6X1A Poisoning by other antiepileptic and sedative-hypnotic drugs, accidental (unintentional), initial encounter; T40.2X1A Poisoning by other opioids, accidental (unintentional), initial encounter; F10.20 Alcohol dependence, uncomplicated; M19.90 Unspecified osteoarthritis, unspecified site; G89.29 Other chronic pain; F17.210 Nicotine dependence, cigarettes, uncomplicated; R33.9 Retention of urine, unspecified; R53.81 Other malaise; Y92.009 Unspecified place in unspecified non-institutional (private) residence as the place of occurrence of the external cause; Z91.81 History of falling; Z99.81 Dependence on supplemental oxygen